=== PATIENT | female | born 1940 | race Caucasian/White ===

== ENCOUNTER 2017-06-28 11:59 | Emergency (ER) | payer MEDICARE ==
[2017-06-28 12:33] LABS: URINE APPEARANCE CLEAR; URINE BILIRUBIN NEGATIVE (NEGATIVE); URINE BLOOD NEGATIVE (NEGATIVE); URINE COLOR YELLOW; URINE GLUCOSE (UA) NEGATIVE (NEGATIVE); URINE KETONE NEGATIVE (NEGATIVE); URINE LEUKOCYTE ESTERASE NEGATIVE (NEGATIVE); URINE NITRITE NEGATIVE (NEGATIVE); URINE PROTEIN NEGATIVE (NEGATIVE); URINE UROBILINOGEN 0.2 E.U./dL (0.20 - 1.00)
[2017-06-28] MEDS ORDERED: 0.9 % SODIUM CHLORIDE 1,000 ML BAG IV ONE (13:33)
--- NOTE | 2017-06-28 13:33 | Emergency Department Record ---
History of Present Illness - General Chief Complaint: Abdominal Pain Stated Complaint: ABDOMINAL PAIN Time Seen by Provider: 06/28/17 13:03 Source: Patient Mode of Arrival: Ambulatory - History of Present Illness Initial Comments: one week of right lower quad pain and she had appendix removed. No vomiting or fever Complaint: Abdominal pain Onset/Timin -: Week(s) Location: Epigastric, RLQ Radiation: None Migration to: No migration Quality: Sharp Consistency: Constant Improves With: Nothing Worsens With: Other Associated Symptoms: Denies other symptoms - Related Data Patient : No Home Medications Medication Instructions Recorded Confirmed Last Taken Cholecalciferol (Vitamin D3) 2,000 unit PO DAILY 06/28/17 06/28/17 Unknown [Vitamin D3] Ferrous Sulfate [Iron] 325 mg PO DAILY 06/28/17 06/28/17 Unknown Valacyclovir HCl [Valtrex] 500 mg PO DAILY 06/28/17 06/28/17 Unknown Previous Rx's Medication Instructions Recorded Ciprofloxacin HCl [Cipro] 500 mg PO Q12HR #20 tablet 06/28/17 Metronidazole [Flagyl] 500 mg PO TID #30 tablet 06/28/17 Allergies Allergy/AdvReac Type Severity Reaction Status Date / Time codeine Allergy FLUSHING Verified 06/28/17 12:19 paroxetine [From Paxil] Allergy HYPERSENSIT Verified 06/28/17 12:19 IVITY Sulfa (Sulfonamide Allergy HIVES Verified 06/28/17 12:19 Antibiotics) Travel Screening - Travel/Exposure Within Last 30 Days Have you traveled within the last 30 days?: No Review of Systems Reviewed: No additional complaints except as noted below Constitutional: Reports: As per HPI. Denies: Chills, Fever, Malaise, Night sweats, Weakness, Weight change Eyes: Reports: As per HPI. Denies: Eye discharge, Eye pain, Photophobia, Vision change ENT: Reports: As per HPI. Denies: Congestion, Dental pain, Ear pain, Epistaxis , Hearing loss, Throat pain Respiratory: Reports: As per HPI. Denies: Cough, Dyspnea, Hemoptysis, Stridor, Wheezes Cardiovascular: Reports: As per HPI. Denies: Arrhythmia, Chest pain, Dyspnea on exertion, Edema, Murmurs, Orthopnea, Palpitations, Paroxysmal nocturnal dyspnea, Rheumatic Fever, Syncope Endocrine: Reports: As per HPI. Denies: Fatigue, Heat or cold intolerance, Polydipsia, Polyuria Gastrointestinal: Reports: As per HPI, Abdominal pain (right lower quad pain). Denies: Constipation, Diarrhea, Hematemesis, Hematochezia, Melena, Nausea, Vomiting Genitourinary: Reports: As per HPI. Denies: Abnormal menses, Discharge, Dyspareunia, Dysuria, Frequency, Hematuria, Incontinence, Retention, Urgency Musculoskeletal: Reports: As per HPI. Denies: Arthralgia, Back pain, Gout, Joint swelling, Myalgia, Neck pain Skin: Reports: As per HPI. Denies: Bruising, Change in color, Change in hair/ nails, Lesions, Pruritus, Rash Neurological: Reports: As per HPI. Denies: Abnormal gait, Confusion, Headache, Numbness, Paresthesias, Seizure, Tingling, Tremors, Vertigo, Weakness Psychiatric: Reports: As per HPI. Denies: Anxiety, Auditory hallucinations, Depression, Homicidal thoughts, Suicidal thoughts, Visual hallucinations Hematological/Lymphatic: Reports: As per HPI. Denies: Anemia, Blood Clots, Easy bleeding, Easy bruising, Swollen glands Past Medical History - SOCIAL HISTORY Smoking Status: Former smoker Alcohol Use: None Drug Use: None - RESPIRATORY Hx Respiratory Disorders: Yes Hx Pulmonary Embolism: Yes - CARDIOVASCULAR Hx Cardio Disorders: Yes Hx Deep Vein Thrombosis: Yes - NEURO Hx Neuro Disorders: No - GI Hx GI Disorders: No - Hx Genitourinary Disorders: No - ENDOCRINE Hx Endocrine Disorders: No - MUSCULOSKELETAL Hx Musculoskeletal Disorders: No - PSYCH Hx Psych Problems: No - HEMATOLOGY/ONCOLOGY Hx Hematology/Oncology Disorders: Yes Hx Cancer: Yes (behind right knee) Hx Chemotherapy: Yes Hx Radiation Therapy: Yes Family Medical History Any Significant Family History?: No Physical Exam - General General Appearance: Alert, Oriented x3, Cooperative, No acute distress - Head Head exam: Normal inspection - Eye Eye exam: Normal appearance, PERRL Pupils: Normal accommodation - ENT ENT exam: Normal exam, Mucous membranes moist, Normal external ear exam, Normal orophraynx, TM's normal bilaterally Ear exam: Normal external inspection. negative: External canal tenderness Nasal Exam: Normal inspection. negative: Discharge, Sinus tenderness Mouth exam: Normal external inspection, Tongue normal Teeth exam: Normal inspection. negative: Dental caries Throat exam: Normal inspection. negative: Tonsillar erythema, Tonsillar exudate - Neck Neck exam: Normal inspection, Full ROM. negative: Tenderness - Respiratory Respiratory exam: Normal lung sounds bilaterally. negative: Respiratory distress - Cardiovascular Cardiovascular Exam: Regular rate, Normal rhythm, Normal heart sounds - GI/Abdominal GI/Abdominal exam: Soft, Normal bowel sounds. negative: Tenderness - Rectal Rectal exam: Deferred - exam: Deferred - Extremities Extremities exam: Normal inspection, Full ROM, Normal capillary refill. negative: Tenderness - Back Back exam: Reports: Normal inspection, Full ROM. Denies: Muscle spasm, Rash noted, Tenderness - Neurological Neurological exam: Alert, Normal gait, Oriented X3, Reflexes normal - Psychiatric Psychiatric exam: Normal affect, Normal mood - Skin Skin exam: Dry, Intact, Normal color, Warm Course Vital Signs 06/28/17 12:10 Temperature 97.5 F L Pulse Rate 90 Respiratory 20 Rate Blood Pressure 126/73 Pulse Ox 97 Medical Decision Making - Lab Data Result diagrams: 06/28/17 13:55 06/28/17 13:55 Lab Results 06/28/17 Range/Units 12:00 Urine Color Yellow Urine Appearance Clear Urine pH 7.0 (5.0-8.0) Ur Specific [place] 1.010 (1.002-1.030) Urine Protein Negative (NEGATIVE) Urine Glucose (UA) Negative (NEGATIVE) Urine Ketones Negative (NEGATIVE) Urine Blood Negative (NEGATIVE) Urine Nitrite Negative (NEGATIVE) Urine Bilirubin Negative (NEGATIVE) Urine Urobilinogen 0.2 (0.20 - 1.00) E.U./dL Ur Leukocyte Esterase Negative (NEGATIVE) Disposition Clinical Impression: Colitis Disposition: Home, Self-Care Condition: (2) Stable Instructions: Abdominal Pain (ED), Colitis (ED) Additional Instructions: low fiber diet follow up with DR. Finn in 2 days return to ED if worse tylenol for pain Prescriptions: Ciprofloxacin HCl [Cipro] 500 mg PO Q12HR #20 tablet Metronidazole [Flagyl] 500 mg PO TID #30 tablet Forms: Patient Portal Access Time of Disposition: 15:25 Quality - Quality Measures Quality Measures: N/A - Blood Pressure Screening Does Patient Have Any of the Following: No Blood Pressure Classification: Pre-Hypertensive BP Reading Systolic Measurement: 126 Diastolic Measurement: 73 Screening for High Blood Pressure: < Pre-Hypertensive BP, F/U Documented > [ [id number]] Pre-Hypertensive Follow-up Interventions: Referral to alternative/primary care provider.
[2017-06-28 14:04] LABS: BASO % 0.5 % (0-6); EOS % 1.4 % (0-6); GRAN % 60.1 % (47-80); HEMATOCRIT 41.7 % (35.0-47.0); HEMOGLOBIN 13.4 gm/dl (11.6-16.0); LYMPH % 25.4 % (16-45); MEAN CELL VOLUME 103.7 fl (81-97); MEAN CORPUSCULAR HEMOGLOBIN 33.3 pg (27-33); MEAN CORPUSCULAR HGB CONC 32.1 g/dl (32-36); MEAN PLATELET VOLUME 10.4 fl (7.4-10.4); MONO % 12.6 % (0-9); PLATELET COUNT 291 K/uL (130-400); RED BLOOD COUNT 4.02 M/uL (3.80-5.40); RED CELL DISTRIBUTION WIDTH 13.9 % (11.5-14.5); WHITE BLOOD COUNT W/O DIFF 10.8 K/uL (4.2-12.2)
[2017-06-28 14:18] LABS: BLOOD UREA NITROGEN 8 mg/dL (8-23); CREATININE 0.7 mg/dL (0.5-0.9); EST GLOMERULAR FILTRATION RATE > 60 mL/min; TOTAL PROTEIN 7.8 g/dL (6.6-8.7)
[2017-06-28 14:20] LABS: GLUCOSE,RANDOM 93 mg/dL (74-109)
[2017-06-28 14:23] LABS: ALBUMIN 4.5 g/dL (4.0-5.0); ALKALINE PHOSPHATASE 142 U/L (35-104); ALT/SGPT 16 U/L (<33); AST/SGOT 25 U/L (10.0-35.0); BILIRUBIN,DIRECT < 0.2 mg/dL (0-0.3); LIPASE 18 U/L (13-60)
--- NOTE | 2017-06-29 12:47 | CT SCAN REPORT ---
EXAM: CT OF THE ABDOMEN AND PELVIS WITHOUT CONTRAST HISTORY: RIGHT LOWER QUADRANT PAIN. CONSTIPATION. TECHNIQUE: Routine CT images of the abdomen and pelvis were obtained without contrast. Comparison: None. FINDINGS: The visualized lung bases are unremarkable. The gallbladder is surgically absent. The liver, pancreas, spleen and adrenals have a normal noncontrast appearance. No renal or ureteral calculi or hydronephrosis. There is prominent sigmoid diverticulosis without CT evidence of diverticulitis. Note is made of cecal wall thickening and surrounding inflammatory changes especially anteriorly. The appendix is not visualized ( patient reports previous appendectomy). The bladder is unremarkable. There are atherosclerotic calcifications. No abdominal or pelvic lymphadenopathy. No free air or free fluid. Small fat containing periumbilical hernia. No acute osseous abnormality. Schmorl's node superior end plate of L3. There are other Schmorl's nodes within the lower thoracic spine as well. IMPRESSION: 1. THERE IS WALL THICKENING OF THE CECUM WELL SURROUNDING INFLAMMATORY CHANGE. THE APPENDIX IS NOT VISUALIZED AND PATIENT DOES REPORT PREVIOUS APPENDECTOMY. GIVEN THIS, FINDINGS LIKELY RELATE TO PRIMARY COLITIS. UNDERLYING CECAL MASS NOT EXCLUDED. CORRELATE WITH HISTORY OF COLONOSCOPY. WOULD RECOMMEND FOLLOW-UP IMAGING AFTER AN APPROPRIATE CLINICAL INTERVAL AT A MINIMUM. 2. PROMINENT SIGMOID COLONIC DIVERTICULOSIS. JOB NUMBER: [id number] [facility]
== END 2017-06-28 15:45 | disposition home or self-care (01) ==
LOC: ER 11:59
DX: K52.9 Noninfective gastroenteritis and colitis, unspecified (principal); R10.31 Right lower quadrant pain; Z87.891 Personal history of nicotine dependence
CPT/HCPCS: 74176; 80048; 80076; 81003; 83690; 85025; 99284; J7030